=== PATIENT | male | born 1965 | race Two or more races ===

== ENCOUNTER 2020-06-05 15:58 | Outpatient (CLI) | payer BC | END 2020-06-05 15:59 | disposition home or self-care (01) | LOC: COV 15:58 | PROVIDERS: ATTEND Family Medicine | DX: R07.0 Pain in throat (principal); R09.81 Nasal congestion; J34.89 Other specified disorders of nose and nasal sinuses; Z20.828 Contact with and (suspected) exposure to other viral communicable diseases ==

== ENCOUNTER 2021-02-11 17:10 | Outpatient (CLI) | payer BC | END 2021-02-11 17:11 | disposition home or self-care (01) | LOC: COV 17:10 | PROVIDERS: ATTEND Family Medicine | DX: Z20.822 Contact with and (suspected) exposure to COVID-19 (principal) ==

== ENCOUNTER 2022-11-29 18:10 | Outpatient (CLI) | payer BC | END 2022-11-29 23:59 | disposition critical access hospital (66) | LOC: EMS 18:10 | DX: S99.912A Unspecified injury of left ankle, initial encounter (principal); X50.1XXA Overexertion from prolonged static or awkward postures, initial encounter; Y93.89 Activity, other specified; Y92.832 Beach as the place of occurrence of the external cause | CPT/HCPCS: A0425; A0427 ==

== ENCOUNTER 2022-11-29 19:32 | Emergency (ER) | payer BC ==
--- NOTE | 2022-11-29 20:58 | XRAY Report ---
PROCEDURE: Ankle 3 View LT INDICATIONS: Trauma TECHNIQUE: 3 views of the ankle were acquired. COMPARISON: Concurrent study of the left foot.. FINDINGS: Bones: There is a comminuted fracture through the calcaneus. Ankle mortise is normally aligned. No suspicious bony lesions. Soft tissues: No tibiotalar joint effusion. There is periarticular soft tissue swelling at the ankl e as well as dorsally in the mid foot. Achilles tendon appears normal. IMPRESSION: 1. Comminuted fracture of the calcaneus. Reviewed by: Lars Knight MD on 11/29/2022 8:56 PM PDT Approved by: Lars Knight MD on 11/29/2022 8:56 PM PDT Station ID: [id number]
--- NOTE | 2022-11-29 20:59 | XRAY Report ---
PROCEDURE: Foot 3 View LT INDICATIONS: Trauma TECHNIQUE: 3 views of the foot were acquired. COMPARISON: Concurrent study of the left ankle. FINDINGS: Bones: There is a comminuted fracture through the calcaneus with extension to the subtalar joint as well as the calcaneocuboid articulation. Soft tissues: There is particular soft tissue swelling in the hindfoot as well as dorsally of the mi dfoot. IMPRESSION: 1. Comminuted fracture of the calcaneus. Reviewed by: Lars Knight MD on 11/29/2022 8:58 PM PDT Approved by: Lars Knight MD on 11/29/2022 8:58 PM PDT Station ID: [id number]
[2022-11-29] MEDS ORDERED: HYDROmorphone 1 MG/ML CARPUJECT IVP STA ×2 (21:08→23:28)
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
--- NOTE | 2022-11-29 23:02 | CT Report ---
PROCEDURE: LOWER EXTREMITY WO - LT INDICATIONS: calcaneus fracture on xrays TECHNIQUE: Noncontrast 3-mm axial sections acquired from the distal tibial shaft through the foot, with coronal and sagittal reformats. For radiation dose reduction, the following was used: automated exposure co ntrol, adjustment of mA and/or kV according to patient size. COMPARISON: None. FINDINGS: Image quality: Excellent. Bones: There is a comminuted fracture of the calcaneus redemonstrated with extension to the subtalar joint laterally. Fracture also involves the anterior process of the calcaneus as well as the calcane al cuboid articulation. There is mild impaction of the fracture fragments posteriorly. Remaining visu alized osseous structures appear intact. Soft tissues: No tibiotalar joint effusion. There is soft tissue swelling within the medial ankle, h indfoot, and midfoot including, dorsal soft tissue swelling in the midfoot. The visualized flexor, ex tensor, peroneal, and Achilles tendons appear intact. Impression: 1. Comminuted fracture of the calcaneus as described with extension to the subtalar joint laterally a s well as the calcaneocuboid articulation. Reviewed by: Lars Knight MD on 11/29/2022 11:01 PM PDT Approved by: Lars Knight MD on 11/29/2022 11:01 PM PDT Station ID: [id number]
[2022-11-30] MEDS ORDERED: oxyCODONE/ACET 5/325 Prepack 4 PO STA (00:07)
[2022-11-30 00:35] VITALS: BP 110/47
== END 2022-11-30 00:35 | disposition home or self-care (01) ==
LOC: EDUNIT# → ED 19:32
DX: S92.002A Unspecified fracture of left calcaneus, initial encounter for closed fracture (principal); X58.XXXA Exposure to other specified factors, initial encounter; Y93.39 Activity, other involving climbing, rappelling and jumping off; Y92.814 Boat as the place of occurrence of the external cause
CPT/HCPCS: 29515; 73610; 73630; 73700; 96374; 96376; 99283; 99284; J1170